=== PATIENT | male | born 1935 | race Hispanic/Latino ===

== ENCOUNTER 2016-04-10 10:57 | Outpatient (CLI) | payer MEDICARE, OTHER ==
[2016-04-10 12:46] LABS: Blood, Urine Trace (Negative); Glucose, Urine (Dipstick) Negative (Negative); Ketone, Urine Trace mg/dL (Negative); Nitrite Negative (Negative); Protein, Urine (Dipstick) Negative (Neg-Trace); Urobilinogen 0.2 mg/dL (0.2-1.0)
[2016-04-10 13:05] LABS: ALT (SGPT) 19 U/L (0-55); AST (SGOT) 20 U/L (5-34); Alkaline Phosphatase 65 U/L (40-150); Anion Gap 17 mmol/L (10-20); BUN (Urea Nitrogen) 17 mg/dL (8.4-25.7); Bilirubin, Total 0.9 mg/dL (0.2-1.2); Calc. Creatinine Clearance 0 mL/min (70-130); Calcium 9.3 mg/dL (7.8-10.44); Carbon Dioxide 22 mmol/L (23-31); Chloride 108 mmol/L (98-107); Estimated GFR-MDRD 64; LDL Cholesterol, Calculated 76 mg/dL; Protein, Total 7.1 g/dL (5.8-8.1)
[2016-04-10 13:13] LABS: Bilirubin Negative (Negative)
[2016-04-10 13:15] LABS: Bacteria/HPF Rare-Few HPF (None Seen); Squamous Epithelial 0-3 HPF (0-3); WBC/HPF 0-3 HPF (0-3)
[2016-04-10 13:48] LABS: Mean Platelet Volume 7.3 fL (7.4-10.4); Red Blood Cell (RBC) Count 4.54 mill/uL (4.70-6.10)
[2016-04-10 13:49] LABS: Neutrophil 44 % (42-75); Reactive Lymphocytes 3 % (0-10)
== END 2016-04-10 10:58 ==
LOC: NAVSJIPCSP 10:57
PROVIDERS: ATTEND Internal Medicine
DX: E78.2 Mixed hyperlipidemia (principal); I11.9 Hypertensive heart disease without heart failure; I25.10 Atherosclerotic heart disease of native coronary artery without angina pectoris; Z79.899 Other long term (current) drug therapy
CPT/HCPCS: 36415; 80053; 80061; 81003; 81015; 85025

== ENCOUNTER 2016-05-10 08:31 | Outpatient (CLI) | payer MEDICARE, OTHER | END 2016-05-10 08:32 | LOC: NAVSJIPCSP 08:31 | PROVIDERS: ATTEND Internal Medicine | DX: N40.1 Benign prostatic hyperplasia with lower urinary tract symptoms (principal); R35.1 Nocturia | CPT/HCPCS: 87086 ==

== ENCOUNTER 2016-09-11 14:31 | Outpatient (CLI) | payer MEDICARE, OTHER ==
[2016-09-11 14:46] LABS: Anion Gap 13 mmol/L (10-20); BUN (Urea Nitrogen) 14 mg/dL (8.4-25.7); Calc. Creatinine Clearance 0 mL/min (70-130); Carbon Dioxide 26 mmol/L (23-31); Cardiac Risk 3.9 (Less than 4.5); Chloride 108 mmol/L (98-107); Cholesterol 148 mg/dl (< 200 Desired); Estimated GFR-MDRD 67; Glucose 77 mg/dL (83-110); HDL Cholesterol 38 mg/dL (>60 Neg Risk); LDL Cholesterol, Calculated 80 mg/dL; Potassium 3.7 mmol/L (3.5-5.1); Sodium 143 mmol/L (136-145); Triglycerides 148 mg/dL (Less than 150)
== END 2016-09-11 14:32 | disposition home or self-care (01) ==
LOC: NAVSJIPCSP 14:31
PROVIDERS: ATTEND Internal Medicine
DX: E78.5 Hyperlipidemia, unspecified (principal); I11.9 Hypertensive heart disease without heart failure; Z79.899 Other long term (current) drug therapy
CPT/HCPCS: 80048; 80061

== ENCOUNTER 2018-03-23 12:42 | Emergency (ER) | payer MEDICARE, OTHER ==
[2018-03-23 13:58] LABS: #Eosinphils 0.1 thou/uL (0.0-0.7); #Monocytes 0.4 thou/uL (0.11-0.59); #Neutrophils 2.2 thou/uL (1.40-6.50); %Basophils 0.9 % (0.0-1.0); %Eosinophils 1.9 % (0.0-10.0); %Lymphocytes 41.9 % (21.0-51.0); %Monocytes 8.5 % (0.0-10.0); %Neutrophils 46.7 % (42.0-75.0); Hemoglobin 13.7 g/dL (14.0-18.0); Mean Corpuscular HGB CONC 33.7 g/dL (32.0-36.0); Mean Corpuscular Hemoglobin 30.5 pg (27.0-31.0); Mean Corpuscular Volume 90.4 fL (78.0-98.0); Mean Platelet Volume 6.8 fL (7.4-10.4); Platelet Count 247 thou/uL (130-400); RBC Distribution Width 12.2 % (11.5-14.5); White Blood Cell (WBC) Count 4.8 thou/uL (4.8-10.8)
[2018-03-23 14:10] LABS: INR-International Normal Ratio 1.1; PTT 36.5 SEC (22.9-36.1); Prothrombin Time 14.3 SEC (12.0-14.7)
[2018-03-23 14:18] LABS: ALT (SGPT) 16 U/L (8-55); AST (SGOT) 20 U/L (5-34); Albumin 4.2 g/dL (3.4-4.8); Alkaline Phosphatase 65 U/L (40-150); Anion Gap 13 mmol/L (10-20); BUN (Urea Nitrogen) 15 mg/dL (8.4-25.7); Bilirubin, Total 0.7 mg/dL (0.2-1.2); Calc. Creatinine Clearance 0 mL/min (70-130); Calcium 9.5 mg/dL (7.8-10.44); Carbon Dioxide 26 mmol/L (23-31); Chloride 106 mmol/L (98-107); Estimated GFR-MDRD 78; Globulin 3.1 g/dL (2.4-3.5); Glucose 85 mg/dL (83-110); Potassium 3.6 mmol/L (3.5-5.1); Protein, Total 7.3 g/dL (5.8-8.1); Sodium 141 mmol/L (136-145)
== END 2018-03-23 14:40 | disposition home or self-care (01) ==
LOC: NAV ERS 12:42
DX: K64.9 Unspecified hemorrhoids (principal); I25.10 Atherosclerotic heart disease of native coronary artery without angina pectoris; I10 Essential (primary) hypertension; K21.9 Gastro-esophageal reflux disease without esophagitis; Z79.82 Long term (current) use of aspirin; Z79.899 Other long term (current) drug therapy
CPT/HCPCS: 80053; 84484; 85025; 85610; 85730; 99283

== ENCOUNTER 2019-04-26 08:11 | Outpatient (CLI) | payer MEDICARE, OTHER ==
--- NOTE | 2019-04-26 09:50 | ULT ---
Sonogram abdomen complete HISTORY: Upper abdomen pain. FINDINGS: Gallbladder is incompletely distended. No stones visible. Common duct is 0.5 cm. Liver unre markable without focal mass or intrahepatic biliary dilatation. No free fluid. Spleen and left kidney are within normal limits. Cysts arising from the cortex of the right kidney measure up to 2.5 cm greatest length at the superior pole. No hydronephrosis or solid mass visible. There is fusiform dilatation of the lower abdominal aorta measuring up to 3.1 cm AP diameter. No retroperitoneal fluid evident. Visualized portions of the IVC and pancreas are unremarkable. IMPRESSION: No evidence of gallstones or biliary obstruction. 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 Incidental note of Right renal cysts.
== END 2019-04-26 08:12 | disposition home or self-care (01) ==
LOC: NAV ULT 08:11
PROVIDERS: ATTEND Internal Medicine
DX: R10.13 Epigastric pain (principal); I71.4 Abdominal aortic aneurysm, without rupture; N28.1 Cyst of kidney, acquired
CPT/HCPCS: 93975